=== PATIENT | male | born 1955 | race Caucasian/White ===

== ENCOUNTER → 2017-10-10 20:05 | Outpatient (CLI) | payer OTHER, SELFPAY | PROVIDERS: Family Provider Family Medicine; PCP Family Medicine; Visit Provider Family Medicine | DX: R06.83 Snoring (principal) | CPT/HCPCS: 95811 ==

== ENCOUNTER → 2018-03-20 08:18 | Outpatient (CLI) | payer OTHER, SELFPAY ==
--- NOTE | 2018-03-20 08:21 | RAD_ITS ---
STUDY: X-RAY - ESOPHAGUS (BARIUM SWALLOW) WITH FLUOROSCOPY REASON FOR EXAM: Male, 63 years old. Dysphagia for solid foods. History of laryngeal carcinoma. TECHNIQUE: 16 view(s) of the esophagus were obtained following swallowing of barium. FLUOROSCOPY TIME (if supplied): (0:24) minutes/seconds COMPARISON: None. FINDINGS: There is no demonstrated esophageal foreign body. There is no demonstrated stricture or mucosal abnormality. Small sliding hiatal hernia with gastroesophageal reflux. The patient ingested a 12 mm tablet of barium without any difficulty. There is atherosclerotic tortuosity of the aortic arch and descending thoracic aorta. Normal visualized pulmonary parenchyma. Normal visualized osseous structures of the thorax. RAD/Esophagus Only IMPRESSION: Small sliding hiatal hernia with gastroesophageal reflux. Electronically Signed: Nato Sim MD at 15:22 EDT Tel [phone], Service support ,
== END ==
PROVIDERS: Family Provider Family Medicine; PCP Family Medicine; Visit Provider Otolaryngology Otolaryngology/Facial Plastic Surgery
DX: R13.10 Dysphagia, unspecified (principal)
CPT/HCPCS: 74220

== ENCOUNTER → 2018-06-19 09:14 | Outpatient (CLI) | payer OTHER, SELFPAY ==
[2018-06-19 12:23] LABS: Absolute Lymphocyte Count 0.78 X10^3/ul (0.83-4.51); Absolute Neutrophil Count 3.5 X10^3/uL (2.0-7.7); Basophil# 0.04 X10^3/uL; Basophil% 0.8 % (0-1); Eosinophil# 0.33 X10^3/uL; Eosinophils% 6.4 % (0-5); Hematocrit 43.3 % (40-54); Hemoglobin 13.7 g/dl (13.0-16.5); Lymphocyte # 0.78 X10^3/ul (4.0); Lymphocyte % 15.2 % (19-41); Mean Corp Hgb Conc 31.6 g/gl (32-36); Mean Corpuscular Hgb 25.7 pg (27.0-32.0); Mean Corpuscular Volume 81.1 fL (80-94); Mean Platelet Vol. 10.2 fl (6.2-12.0); Monocyte# 0.48 X10^3/uL; Monocyte% 9.3 % (0-10); Neutrophil % 68.1 % (47-70); Platelet Count 208 K/mm3 (150-450); RBC Distribution Width CV 14.5 % (11.6-14.6); RBC Distribution Width SD 42.5 fl (35.1-43.9); Red Blood Count 5.34 M/mm3 (4.6-6.2); White Blood Count 5.1 K/mm3 (4.4-11.0)
[2018-06-19 12:43] LABS: POSITIVE COUNT NO; POSITIVE DIFFERENTIAL NO; POSITIVE MORPHOLOGY NO
[2018-06-19 12:44] LABS: AST(SGOT) 28 U/L (15-37); Alanine Aminotransfer ALT/SGPT 32 U/L (16-61); Albumin, Serum 3.8 g/dL (3.2-5.0); Alkaline Phosphatase 111 U/L (45-117); Anion Gap 4 (5-15); BUN 15 mg/dL (7-18); BUN/Creat Ratio 15.8 RATIO (10-20); Calcium,Total 8.6 mg/dL (8.5-10.1); Chloride 105 mmol/L (98-107); Cholesterol 129 mg/dL (200); Creatinine, Serum 0.95 mg/dL (0.70-1.30); EST Glomerular Filtration Rate 85 mL/min (>60); Est Glom Filt Rate - Afr Amer 103 mL/min (>60); Globulin 3.7 g/dL (2.2-4.2); Glucose 86 mg/dL (74-106); High Density Lipoprotein 44 mg/dL; PSA,Total - Annual Screen 4.44 ng/mL (0.00-4.00); Potassium 3.9 mmol/L (3.5-5.1); Protein, Total 7.5 g/dL (6.4-8.2); Sodium Level 140 mmol/L (136-145); Thyroid Stim Hormone (TSH) 3.34 uIU/mL (0.358-3.74); Triglycerides 84 mg/dL; Very Low Density Lipoprotein 17 mg/dL (5-40)
== END ==
PROVIDERS: Family Provider Family Medicine; PCP Family Medicine; Referring Provider Family Medicine; Visit Provider Family Medicine
DX: Z00.00 Encounter for general adult medical examination without abnormal findings (principal); I10 Essential (primary) hypertension; E03.9 Hypothyroidism, unspecified; Z12.5 Encounter for screening for malignant neoplasm of prostate; E78.5 Hyperlipidemia, unspecified
CPT/HCPCS: 36415; 80053; 80061; 84153; 84443; 85025; G0103

== ENCOUNTER → 2018-12-28 | Outpatient (CLI) | payer OTHER, SELFPAY ==
[2018-10-02 14:13] VITALS: BMI 33.8
--- NOTE | 2018-12-29 10:59 | PFT ---
INTRODUCTION: The patient is a 63-year-old male that presents for pulmonary function studies secondary to a diagnosis of cough. Respiratory therapy reports good patient effort. Bronchodilators were used during testing. INTERPRETATION: Forced expiration spirometry demonstrates no evidence of a large airways obstructive ventilatory defect. There was no significant response to aerosolized bronchodilators. Spirograms are of good quality and plateau gradually indicating slow emptying of the lungs. Body plethysmography was performed and reveals lung volumes to be within normal limits. Diffusing capacity by single breath CO is also within normal limits. IMPRESSION: Normal pulmonary function studies.
== END | disposition home or self-care (01) ==
LOC: PSN 07:53
PROVIDERS: Family Provider Family Medicine; PCP Family Medicine; Referring Provider Internal Medicine Critical Care Medicine; Visit Provider Internal Medicine Critical Care Medicine
DX: R05 Cough (principal)
CPT/HCPCS: 94060; 94726; 94729

== ENCOUNTER → 2019-01-19 | Outpatient (CLI) | payer OTHER, SELFPAY ==
[2018-10-02 14:13] VITALS: BMI 33.8
[2019-01-19 13:10] LABS: PSA,Total- Diagnostic 2.48 ng/mL (0.0-4.0)
== END | disposition home or self-care (01) ==
LOC: BFHLAB 10:17
PROVIDERS: Family Provider Family Medicine; PCP Family Medicine; Visit Provider Family Medicine
DX: R97.20 Elevated prostate specific antigen [PSA] (principal)
CPT/HCPCS: 36415; 84153

== ENCOUNTER → 2019-04-19 20:00 | Outpatient (CLI) | payer OTHER, SELFPAY ==
[2018-10-02 14:13] VITALS: BMI 33.8
== END ==
PROVIDERS: Family Provider Family Medicine; PCP Family Medicine; Referring Provider Internal Medicine Critical Care Medicine; Visit Provider Internal Medicine Critical Care Medicine
DX: G47.33 Obstructive sleep apnea (adult) (pediatric) (principal)
CPT/HCPCS: 95811

== ENCOUNTER → 2019-05-22 12:00 | Outpatient (CLI) | payer OTHER, SELFPAY ==
[2019-05-22 07:53] VITALS: BMI 33.8
[2019-05-22 14:07] LABS: Hematocrit 42.5 % (40-54); Hemoglobin 13.3 g/dL (13.0-16.5); Mean Corp Hgb Conc 31.3 g/dL (32-36); Mean Platelet Vol. 9.6 fl (6.2-12.0); Platelet Count 213 K/mm3 (150-450); RBC Distribution Width CV 14.3 % (11.6-14.6); RBC Distribution Width SD 42.9 fl (35.1-43.9); Red Blood Count 5.12 M/mm3 (4.6-6.2); White Blood Count 5.9 K/mm3 (4.4-11.0)
[2019-05-22 14:53] LABS: Ferritin 14 ng/mL (26-388); Iron 49 ug/dL (65-175); Iron Binding Capacity,Total 427 ug/dL (250-450); PERCENT IRON SATURATION 11.5 % (15.0-55.0)
== END ==
PROVIDERS: Family Provider Family Medicine; PCP Family Medicine; Referring Provider Nurse Practitioner Acute Care; Visit Provider Nurse Practitioner Acute Care
DX: G25.81 Restless legs syndrome (principal)
CPT/HCPCS: 36415; 82728; 83540; 83550; 85027

== ENCOUNTER → 2020-07-22 09:09 | Outpatient (CLI) | payer OTHER, SELFPAY ==
[2020-03-04 05:37] VITALS: BMI 33.5
[2020-07-22 12:22] LABS: Absolute Lymphocyte Count 0.98 X10^3/uL (0.83-4.51); Absolute Neutrophil Count 3.9 X10^3/uL (2.0-7.7); Basophil# 0.06 X10^3/uL; Eosinophil# 0.39 X10^3/uL; Eosinophils% 6.5 % (0-5); Hematocrit 45.3 % (40-54); Hemoglobin 14.9 g/dL (13.0-16.5); Lymphocyte # 0.98 X10^3/ul (4.0); Lymphocyte % 16.3 % (19-41); Mean Corp Hgb Conc 32.9 g/dL (32-36); Mean Corpuscular Hgb 26.7 pg (27.0-32.0); Mean Corpuscular Volume 81.2 fL (80-94); Mean Platelet Vol. 10.1 fl (6.2-12.0); Monocyte# 0.61 X10^3/uL; Monocyte% 10.2 % (0-10); NRBC Flagged by Analyzer 0 % (0-5); Neutrophil # 3.94 X10^3/uL (2.7-7.7); Neutrophil % 65.7 % (47-70); Platelet Count 246 K/mm3 (150-450); RBC Distribution Width CV 14.6 % (11.6-14.6); RBC Distribution Width SD 43.3 fl (35.1-43.9); Red Blood Count 5.58 M/mm3 (4.6-6.2)
[2020-07-22 12:40] LABS: AST(SGOT) 21 U/L (15-37); Alanine Aminotransfer ALT/SGPT 36 U/L (16-61); Albumin, Serum 3.7 g/dL (3.2-5.0); Alkaline Phosphatase 113 U/L (45-117); Anion Gap 4 (5-15); BUN 19 mg/dL (7-18); BUN/Creat Ratio 17.3 RATIO (10-20); Calcium,Total 9.1 mg/dL (8.5-10.1); Chloride 105 mmol/L (98-107); Cholesterol 137 mg/dL (200); EST Glomerular Filtration Rate 71 mL/min (>60); Est Glom Filt Rate - Afr Amer 86 mL/min (>60); Ferritin 13 ng/mL (26-388); Globulin 3.7 g/dL (2.2-4.2); Glucose 98 mg/dL (74-106); High Density Lipoprotein 51 mg/dL; Iron 43 ug/dL (65-175); PSA,Total - Annual Screen 2.59 ng/mL (0.00-4.00); Potassium 3.8 mmol/L (3.5-5.1); Protein, Total 7.4 g/dL (6.4-8.2); Sodium Level 138 mmol/L (136-145); Thyroid Stim Hormone (TSH) 1.66 uIU/mL (0.358-3.74); Triglycerides 71 mg/dL; Very Low Density Lipoprotein 14 mg/dL (5-40)
== END ==
PROVIDERS: PCP Family Medicine; Visit Provider Family Medicine
DX: I10 Essential (primary) hypertension (principal); E03.9 Hypothyroidism, unspecified; E61.1 Iron deficiency; E78.5 Hyperlipidemia, unspecified; Z51.81 Encounter for therapeutic drug level monitoring; Z12.5 Encounter for screening for malignant neoplasm of prostate
CPT/HCPCS: 36415; 80053; 80061; 82728; 83540; 84153; 84439; 84443; 85025; G0103

== ENCOUNTER → 2020-07-28 12:52 | Outpatient (CLI) | payer MEDICARE, SELFPAY ==
[2020-03-04 05:37] VITALS: BMI 33.5
--- NOTE | 2020-07-28 13:00 | SP.MBSS_ITS ---
Modified Barium Swallow - Patient Information Study Date: 07/28/20 Study Time: 13:00 Direct Billable Minutes: 145 Total Minutes procedure & reportin Diagnosis: dysphagia Referring Physician: Leonard London Reason for Referral: Order received chronic cough with eating in the setting of dry mouth, aspiration vs. obstruction; patient reports tickle in throat where my nose and throat meet with chronic coughing w/ PO intake for years; denies weight loss or pulmonary complications/PNA associated w/ symptoms Medical History: degeneration of intervertebral disc, elevated PSA, essential HTN, GERD, HLD, hypothyroidism, nasopharyngeal cancer s/p chemo/radiation/surgery (1992), LAURA, piriformis syndrome, ED, skin cancer; xerostomia since radiation in 1992; patient reports ?my throat was stretched 2-3 years ago? by Dr. Herman Current Diet Ordered: regular textures/thin liquids Dentition: Natural Teeth - w/ dental implants Mental Status: WNL Respiratory Status: Oxygenating on Room Air - Penetration-Aspiration Scale Penetration-Aspiration Scale: VIDEOFLOROSCOPIC SCALE SCORE (SPEARS): Grade I = aspiration of material that has penetrated into the laryngeal vestibule, intact cough reflex Grade II = aspiration < 10 % of the bolus, intact cough reflex Grade III = aspiration of < 10 % of the bolus, reduced cough reflex or aspiration of > 10 % of the bolus, intact cough reflex Grade IV = aspiration of > 10 % of the bolus, reduced cough reflex - Penetration-Aspiration Scale Score Thin Liquid via teaspoon Result: 8= enters airway/below vocal folds/no effort Comment: VFSS Grade III Thin Liquid via teaspoon Trial 2 Result: 8= enters airway/below vocal folds/no effort Comment: VFSS Grade III Thin Liquid via small single sip from cup Result: 8= enters airway/below vocal folds/no effort Comment: VFSS Grade III Thin Liquid via sequential sips from cup Result: 8= enters airway/below vocal folds/no effort Comment: VFSS Grade III Other Result: 5= enters airways/contacts vocal folds/not ejected Comment: Dry swallow of oropharyngeal secretions w/ chin tuck posture - not effective for airway protection w/ worsening penetration of pharyngeal residue Honey Thick Liquid via small single sip from cup Result: 3= enters airways/above vocal folds/not ejected [place] Thick Liquid via small single sip from cup Result: 5= enters airways/contacts vocal folds/not ejected [place] Thick Liquid via small single sip from cup Supraglottic swallow Result: 5= enters airways/contacts vocal folds/not ejected Comment: Supraglottic Swallow effective to reduce amount of contrast penetrated Honey Thick Liquid via small single sip from cup Trial 2 Result: 3= enters airways/above vocal folds/not ejected [place] Thick Liquid via small single sip from cup Trial 2 Result: 5= enters airways/contacts vocal folds/not ejected Pudding Result: 1= does not enter airway Cookie Result: 1= does not enter airway Honey Thick Liquid via small single sip from cup Trial 3 Result: 5= enters airways/contacts vocal folds/not ejected Honey Thick Liquid via small single sip from cup Trial 4 Result: 1= does not enter airway [place] Thick Liquid via small single sip from cup Trial 3 Result: 5= enters airways/contacts vocal folds/not ejected [place] Thick Liquid via small single sip from cup Supraglottic swallow Trial 2 Result: 3= enters airways/above vocal folds/not ejected Thin Liquid via small single sip from cup Supraglottic swallow Result: 3= enters airways/above vocal folds/not ejected - pharyngeal residue entered the laryngeal vestibule post deglutition, contacting the vocal folds - Oral Phase Labial Seal: No Labial Escape Tongue Control During Bolus Hold: Cohesive bolus between tongue to palatal seal Bolus Preparation/Mastication: Slow prolonged chewing/mashing with complete re collection Bolus Transport/Lingual Motion: Slowed tongue motion Oral Residue: Residue collection on oral structures - Pharyngeal Phase Initiation of Pharyngeal Swallow: Bolus head at posterior laryngeal surgace of epiglottis Soft Palate Elevation: Trace column of contrast/air between soft palate and pharyngeal wall Laryngeal Elevation: Partial superior movement thyroid cart/partial apprx aryt- epig petiole Anterior Hyoid Excursion: No anterior movement - minimal Epiglottic Movement: Partial inversion Laryngeal Vestibule Closure at Height of Swallow: Incomplete; narrow column of air/contrast in laryngeal vestibule Pharyngeal Stripping Wave: Present - diminished Pharyngoesophageal Segment Opening: Parital distension and partial duration; parital obstruction of flow Tongue Base Retraction: Narrow column of contrast between tongue base & post. pharyngeal wall Pharyngeal Residue: Majority of contrast within or on pharyngeal structures - Esophageal Phase Esophageal Clearance: Esophageal retention w/ retrograde flow below pharyngoesophageal seg. - Treatment Strategies Effects of treatment strategies attemped:: Reduction in bolus volume = effective to improve bolus location at time of swallow onset Supraglottic swallow = effective to reduce but not eliminate amount of laryngeal vestibule penetration Multiple swallows = partially effective - Diagnosis/Impression Diagnosis: moderate to severe oropharyngeal dysphagia Impression: This patient presents w/ moderate to severe oropharyngeal dysphagia secondary to prior nasopharyngeal cancer and late effects of radiation. Of note, darkening/calcification is visible where the vocal folds connect to the thyroid cartilage prior to provision of contrast. Swallow function is marked by: * mildly impaired A-P bolus transit w/ moderate oral residue retention post deglutition of solid texture trial, likely exacerbated by chronic xerostomia * incomplete velopharyngeal port closure secondary to prior partial surgical resection of velum w/ visible air between remaining velum and posterior pharyngeal wall * contrast that lined the posterior pharyngeal wall extended upward between the remaining velum and posterior pharyngeal wall w/out entrance into the nasal cavity * incomplete base of tongue to posterior pharyngeal wall contact resulting in suboptimal pharyngeal contraction and reduced pressure for pharyngeal clearance/pharyngoesophageal segment opening * minimal anterior hyoid excursion resulted in incomplete epiglottic inversion and poor pharyngoesophageal segment distention/duration of opening which impeded bolus flow into the esophagus * epiglottis did not invert beyond 180 degrees w/ tip of epiglottis curled against the posterior pharyngeal wall which impeded bolus clearance w/ resultant vallecular residue retention * impaired hyolaryngeal excursion, incomplete epiglottic inversion and incomplete arytenoid to epiglottic petiole contact all contributed to impaired laryngeal vestibule closure w/ penetration across all liquid consistencies and SILENT aspiration of thin liquids * a supraglottic swallow technique was effective to improve laryngeal vestibule closure during deglutition and reduced the degree/severity of laryngeal vestibule penetration and was effective to eliminate aspiration of thin liquids during/immediately after deglutition * poor pharyngeal clearance w/ a significant collection of contrast retained on the base of tongue, valleculae and pyriform sinuses; contrast lined the posterior pharyngeal wall and aryepiglottic folds post deglutition * multiple swallows were required and utilized w/ pudding/solid textures; ~10% of bolus entered through PES into esophagus w/ each swallow w/ +50% retained win the pharynx post deglutition * pyriform sinus contrast penetrated into the laryngeal vestibule post deglutition * cricopharyngeal hypertrophy w/ CP visible at the level of C4 * cervical osteophyte visible at the level of C5 * esophageal bolus retention evident w/ retrograde bolus flow below the PES * 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 (although not impacting overall swallow function); further assessment of esophageal function is recommended w/ consideration for endoscopy/manometry as deemed appropriate per referring physician d/t CP bar w/ impaired esophageal clearance - Recommendations Diet: Regular Textures, [place]-thick Liquids Comment: Minced & moist textures (IDDSI: 5); Thin liquids (IDDSI:0) with the following recommended aspiration precautions in place: * small bites/sips, one at a time * alternate bites/sips * sit upright when eating and drinking * supraglottic swallow technique * reswallow as often as needed for each bite/sip to ensure throat is clear * remain upright for 30-60 minutes after intake * frequent oral hygiene Recommend Repeat Modified Barium Swallow: Yes Need for Skilled Speech Therapy Services: Yes Recommended Referrals: GI Consult - further assessment of pharyngoesophageal/esophageal function Comment: Results and recommendations were discussed w/ the patient immediately following MBS completion w/ extensive review of the images obtained and education provided re: deficits in swallow function identified and the compounding effects of radiation over time on swallow function. Strongly encouraged participation in outpatient dysphagia intervention to address the above identified deficits. Discussed options for diet texture/liquid consistency modification. Given that this patient appears to be a fairly reliable historian and denies any weight loss or pneumonia associated w/ current swallow dysfunction, thickening of liquids is not recommended at this time, as this dysphagia has likely progressively worsening over time w/ the patient compensating for aspiration w/out decompensation of pulmonary function. High risk for decompensation if this patient were to become ill/immobile. Handout detailing recommendations provided. Education well received. - Status Active ST Patient: Active - Contact Information [facility] Speech Therapy:: Melanie Diaz M.A., [facility] Speech-Language Pathologist [phone]
== END ==
PROVIDERS: PCP Family Medicine; Referring Provider Family Medicine; Visit Provider Family Medicine
DX: R05 Cough (principal); R13.10 Dysphagia, unspecified
CPT/HCPCS: 74230; 92611

== ENCOUNTER 2020-09-19 08:00 | Outpatient (RCR) | payer MEDICARE, SELFPAY ==
[2020-03-04 05:37] VITALS: BMI 33.5
--- NOTE | 2020-08-15 15:30 | ST ---
[facility] Speech Pathology [address] [place] [place] [address] Modified Barium Swallow Study MR#: [id number] Acct: [id number] Name: TREVON CASTANEDA Rep #: [id number] : [id number] 65 From: Melanie Diaz M.A. [facility]-[employer] Modified Barium Swallow - Patient Information Study Date: 07/28/20 Study Time: 13:00 Direct Billable Minutes: 145 Total Minutes procedure & reportin Diagnosis: dysphagia Referring Physician: Leonard London Reason for Referral: Order received chronic cough with eating in the setting of dry mouth, aspiration vs. obstruction; patient reports tickle in throat where my nose and throat meet with chronic coughing w/ PO intake for years; denies weight loss or pulmonary complications/PNA associated w/ symptoms Medical History: degeneration of intervertebral disc, elevated PSA, essential HTN, GERD, HLD, hypothyroidism, nasopharyngeal cancer s/p chemo/radiation/surgery (1992), LAURA, piriformis syndrome, ED, skin cancer; xerostomia since radiation in 1992; patient reports ?my throat was stretched 2-3 years ago? by Dr. Herman Current Diet Ordered: regular textures/thin liquids Dentition: Natural Teeth - w/ dental implants Mental Status: WNL Respiratory Status: Oxygenating on Room Air - Penetration-Aspiration Scale Penetration-Aspiration Scale: VIDEOFLOROSCOPIC SCALE SCORE (SPEARS): Grade I = aspiration of material that has penetrated into the laryngeal vestibule, intact cough reflex Grade II = aspiration < 10 % of the bolus, intact cough reflex Grade III = aspiration of < 10 % of the bolus, reduced cough reflex or aspiration of > 10 % of the bolus, intact cough reflex Grade IV = aspiration of > 10 % of the bolus, reduced cough reflex - Penetration-Aspiration Scale Score Thin Liquid via teaspoon Result: 8= enters airway/below vocal folds/no effort Comment: VFSS Grade III Thin Liquid via teaspoon Trial 2 Result: 8= enters airway/below vocal folds/no effort Comment: VFSS Grade III Thin Liquid via small single sip from cup Result: 8= enters airway/below vocal folds/no effort Comment: VFSS Grade III Thin Liquid via sequential sips from cup Result: 8= enters airway/below vocal folds/no effort Comment: VFSS Grade III Other Result: 5= enters airways/contacts vocal folds/not ejected Comment: Dry swallow of oropharyngeal secretions w/ chin tuck posture - not effective for airway protection w/ worsening penetration of pharyngeal residue Honey Thick Liquid via small single sip from cup Result: 3= enters airways/above vocal folds/not ejected [place] Thick Liquid via small single sip from cup Result: 5= enters airways/contacts vocal folds/not ejected [place] Thick Liquid via small single sip from cup Supraglottic swallow Result: 5= enters airways/contacts vocal folds/not ejected Comment: Supraglottic Swallow effective to reduce amount of contrast penetrated Honey Thick Liquid via small single sip from cup Trial 2 Result: 3= enters airways/above vocal folds/not ejected [place] Thick Liquid via small single sip from cup Trial 2 Result: 5= enters airways/contacts vocal folds/not ejected Pudding Result: 1= does not enter airway Cookie Result: 1= does not enter airway [place] Thick Liquid via small single sip from cup Trial 3 Result: 5= enters airways/contacts vocal folds/not ejected [place] Thick Liquid via small single sip from cup Trial 4 Result: 1= does not enter airway [place] Thick Liquid via small single sip from cup Trial 3 Result: 5= enters airways/contacts vocal folds/not ejected [place] Thick Liquid via small single sip from cup Supraglottic swallow Trial 2 Result: 3= enters airways/above vocal folds/not ejected Thin Liquid via small single sip from cup Supraglottic swallow Result: 3= enters airways/above vocal folds/not ejected - pharyngeal residue entered the laryngeal vestibule post deglutition, contacting the vocal folds - Oral Phase Labial Seal: No Labial Escape Tongue Control During Bolus Hold: Cohesive bolus between tongue to palatal seal Bolus Preparation/Mastication: Slow prolonged chewing/mashing with complete recollection Bolus Transport/Lingual Motion: Slowed tongue motion Oral Residue: Residue collection on oral structures - Pharyngeal Phase Initiation of Pharyngeal Swallow: Bolus head at posterior laryngeal surgace of epiglottis Soft Palate Elevation: Trace column of contrast/air between soft palate and pharyngeal wall Laryngeal Elevation: Partial superior movement thyroid cart/partial apprx aryt-epig petiole Anterior Hyoid Excursion: No anterior movement - minimal Epiglottic Movement: Partial inversion Laryngeal Vestibule Closure at Height of Swallow: Incomplete; narrow column of air/contrast in laryngeal vestibule Pharyngeal Stripping Wave: Present - diminished Pharyngoesophageal Segment Opening: Parital distension and partial duration; parital obstruction of flow Tongue Base Retraction: Narrow column of contrast between tongue base & post. pharyngeal wall Pharyngeal Residue: Majority of contrast within or on pharyngeal structures - Esophageal Phase Esophageal Clearance: Esophageal retention w/ retrograde flow below pharyngoesophageal seg. - Treatment Strategies Effects of treatment strategies attemped:: Reduction in bolus volume = effective to improve bolus location at time of swallow onset Supraglottic swallow = effective to reduce but not eliminate amount of laryngeal vestibule penetration Multiple swallows = partially effective - Diagnosis/Impression Diagnosis: moderate to severe oropharyngeal dysphagia Impression: This patient presents w/ moderate to severe oropharyngeal dysphagia secondary to prior nasopharyngeal cancer and late effects of radiation. Of note, darkening/calcification is visible where the vocal folds connect to the thyroid cartilage prior to provision of contrast. Swallow function is marked by: mildly impaired A-P bolus transit w/ moderate oral residue retention post deglutition of solid texture trial, likely exacerbated by chronic xerostomia incomplete velopharyngeal port closure secondary to prior partial surgical resection of velum w/ visible air between remaining velum and posterior pharyngeal wall contrast that lined the posterior pharyngeal wall extended upward between the remaining velum and posterior pharyngeal wall w/out entrance into the nasal cavity incomplete base of tongue to posterior pharyngeal wall contact resulting in suboptimal pharyngeal contraction and reduced pressure for pharyngeal clearance/pharyngoesophageal segment opening minimal anterior hyoid excursion resulted in incomplete epiglottic inversion and poor pharyngoesophageal segment distention/duration of opening which impeded bolus flow into the esophagus epiglottis did not invert beyond 180 degrees w/ tip of epiglottis curled against the posterior pharyngeal wall which impeded bolus clearance w/ resultant vallecular residue retention impaired hyolaryngeal excursion, incomplete epiglottic inversion and incomplete arytenoid to epiglottic petiole contact all contributed to impaired laryngeal vestibule closure w/ penetration across all liquid consistencies and SILENT aspiration of thin liquids a supraglottic swallow technique was effective to improve laryngeal vestibule closure during deglutition and reduced the degree/severity of laryngeal vestibule penetration and was effective to eliminate aspiration of thin liquids during/immediately after deglutition poor pharyngeal clearance w/ a significant collection of contrast retained on the base of tongue, valleculae and pyriform sinuses; contrast lined the posterior pharyngeal wall and aryepiglottic folds post deglutition multiple swallows were required and utilized w/ pudding/solid textures; ~10% of bolus entered through PES into esophagus w/ each swallow w/ +50% retained win the pharynx post deglutition pyriform sinus contrast penetrated into the laryngeal vestibule post deglutition cricopharyngeal hypertrophy w/ CP visible at the level of C4 cervical osteophyte visible at the level of C5 esophageal bolus retention evident w/ retrograde bolus flow below the PES 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 (although not impacting overall swallow function); further assessment of esophageal function is recommended w/ consideration for endoscopy/manometry as deemed appropriate per referring physician d/t CP bar w/ impaired esophageal clearance - Recommendations Diet: Regular Textures, [place]-thick Liquids Comment: Minced & moist textures (IDDSI: 5); Thin liquids (IDDSI:0) with the following recommended aspiration precautions in place: small bites/sips, one at a time alternate bites/sips sit upright when eating and drinking supraglottic swallow technique reswallow as often as needed for each bite/sip to ensure throat is clear remain upright for 30-60 minutes after intake frequent oral hygiene Recommend Repeat Modified Barium Swallow: Yes Need for Skilled Speech Therapy Services: Yes Recommended Referrals: GI Consult - further assessment of pharyngoesophageal/esophageal function Comment: Results and recommendations were discussed w/ the patient immediately following MBS completion w/ extensive review of the images obtained and education provided re: deficits in swallow function identified and the compounding effects of radiation over time on swallow function. Strongly encouraged participation in outpatient dysphagia intervention to address the above identified deficits. Discussed options for diet texture/liquid consistency modification. Given that this patient appears to be a fairly reliable historian and denies any weight loss or pneumonia associated w/ current swallow dysfunction, thickening of liquids is not recommended at this time, as this dysphagia has likely progressively worsening over time w/ the patient compensating for aspiration w/out decompensation of pulmonary function. High risk for decompensation if this patient were to become ill/immobile. Handout detailing recommendations provided. Education well received. - Status Active ST Patient: Active - Contact Information [facility] Speech Therapy:: Melanie Diaz M.A., CCC-CLP Speech-Language Pathologist [email or web address] [phone] 07/29/201928 <Electronically signed by Melanie Diaz M.A., CCC-[employer]TA[employer] PERSONAL B[employer]ER> Date Melanie Diaz M.A., CCC-[employer]TA[employer] PERSONAL B[employer]ER Co-Signature Required for all Medicare patients Date/Time Co-Signature CC: ~
--- NOTE | 2020-12-16 10:41 | HP.SP.DC_ITS ---
ST Discharge Summary - Discharged: Discharge: The pt participated in MBS study on 08/08/20 revealing moderate-severe oropharyngeal phase dysphagia s/p surgery and chemoradiation for nasopharyngeal cancer (1992). Outpatient speech therapy evaluation and POC initiated 08/15/20 to implement oropharyngeal strengthening, train in diet recommendations, and train in compensatory strategies to decrease risk for aspiration. The pt participated in 3 follow-up sessions. [facility] spoke with the patient via phone call 11/06/20 and pt not interested in scheduling additional visits at this time, despite ST encouragement to continue with home exercise program to improve swallow function and to consider continued training in strategies to decrease risk for aspiration. Pt will be discharged at this time.
== END 2020-09-19 19:00 | disposition home or self-care (01) ==
LOC: SP 08:00
PROVIDERS: PCP Family Medicine; Referring Provider Family Medicine; Visit Provider Family Medicine
DX: R13.10 Dysphagia, unspecified (principal); R47.02 Dysphasia
CPT/HCPCS: 92507; 92526; 92610

== ENCOUNTER → 2020-10-09 14:46 | Outpatient (CLI) | payer MEDICARE, SELFPAY ==
[2020-03-04 05:37] VITALS: BMI 33.5
== END ==
PROVIDERS: PCP Family Medicine; Referring Provider Internal Medicine Gastroenterology; Visit Provider Internal Medicine Gastroenterology
DX: Z11.59 Encounter for screening for other viral diseases (principal)
CPT/HCPCS: 87635; C9803; U0002

== ENCOUNTER → 2020-12-30 12:56 | Outpatient (CLI) | payer MEDICARE, SELFPAY ==
[2020-11-11 06:02] VITALS: BMI 31.4
--- NOTE | 2020-12-30 14:17 | SP.MBSS_ITS ---
Modified Barium Swallow - Patient Information Study Date: 12/30/20 Study Time: 13:00 Direct Billable Minutes: 150 Total Minutes procedure & reportin Diagnosis: Dysphagia, unspecified (R13.10) Referring Physician: Mich Herman Reason for Referral: Assess swallow function and aspiration risk due to history of dysphagia. Medical History: The patient is a 65 year old male with PMH including: dysphagia, degeneration of intervertebral disc, elevated PSA, essential HTN, HLD, hypothyroidism, ED, piriformis syndrome, and skin cancer. Most notably: nasopharyngeal cancer s/p chemo/radiation/surgery (1992), xerostomia since radiation in 1992, LAURA, and GERD. Patient additionally reports having esophageal dilatation early this year for the second time, the first time occurring approximately 2-3 years ago. The patient was referred for repeat MBS study to objectively assess oropharyngeal dysphagia. He reports complaints of dry mouth, requiring sips to wash dry foods, and difficulty swallowing certain solid textures, including oranges and peas. The patient participated in a MBS study on 07/28/2020, revealing moderate-severe oropharyngeal phase dysphagia with recommendations for Minced & moist textures (IDDSI: 5); Thin liquids (IDDSI:0) with the following recommended aspiration precautions: small bites/sips, one at a time, alternate bites/sips, sit upright when eating and drinking, supraglottic swallow technique, reswallow as often as needed for each bite/sip to ensure throat is clear, remain upright for 30-60 minutes after intake, frequent oral hygiene. The patient participated in outpatient speech therapy evaluation with POC initiated 08/15/20 to implement oropharyngeal strengthening, train in diet recommendations, and train in compensatory strategies to decrease risk for aspiration. He participated in 3 follow-up sessions prior to the patient electing to discontinue speech therapy. Current Diet Ordered: Regular Textures / Thin liquids Dentition: WNL Mental Status: WNL Respiratory Status: Oxygenating on Room Air - Study Findings Consistencies: Thin Liquid, [place] Thick Liquid, Honey Thick Liquid, Pudding, Cookie - Penetration-Aspiration Scale Penetration-Aspiration Scale: OBJECTIVE ASSESSMENT OF SWALLOW FUNCTION (QUANTITATIVE ? PER TRIAL): PENETRATION / ASPIRATION SCALE (SPEARS): 1 = does not enter airway 2 = enters airway/above vocal folds/ejected 3 = enters airway/above vocal folds/not ejected 4 = enters airway/contacts vocal folds/ejected 5 = enters airway/contacts vocal folds/not ejected 6 = enters airway/below vocal folds/ejected 7 = enters airway/below vocal folds/not ejected despite effort 8 = enters airway/below vocal folds/no effort VIDEOFLOROSCOPIC SCALE SCORE (SPEARS): Grade I = aspiration of material that has penetrated into the laryngeal vestibule, intact cough reflex Grade II = aspiration < 10 % of the bolus, intact cough reflex Grade III = aspiration of < 10 % of the bolus, reduced cough reflex or aspiration of > 10 % of the bolus, intact cough reflex Grade IV = aspiration of > 10 % of the bolus, reduced cough reflex - Penetration-Aspiration Scale Score Thin Liquid via teaspoon Result: 1= does not enter airway Thin Liquid via small single sip from cup Result: 8= enters airway/below vocal folds/no effort - Grade III silent aspiration. Thin Liquid via single sip from straw Result: 8= enters airway/below vocal folds/no effort - Grade IV silent aspiration [place] Thick Liquid via teaspoon Result: 5= enters airways/contacts vocal folds/not ejected [place] Thick Liquid via small single sip from cup Result: 5= enters airways/contacts vocal folds/not ejected Thin Liquid via teaspoon Trial 2 Result: 5= enters airways/contacts vocal folds/not ejected Thin Liquid via teaspoon Chin tuck Result: 8= enters airway/below vocal folds/no effort - Grade IV silent aspiration. Thin Liquid via teaspoon Super-Supraglottic swallow Result: 5= enters airways/contacts vocal folds/not ejected Honey Thick Liquid via teaspoon Result: 1= does not enter airway Pudding via teaspoon Result: 1= does not enter airway Comment: Pudding residue was seen penetrating the laryngeal vestibule to the vocal cords without ejection during the following cookie trial. Cookie Result: 1= does not enter airway Honey Thick Liquid via small single sip from cup Result: 1= does not enter airway Honey Thick Liquid via small single sip from cup Trial 2 Result: 1= does not enter airway - Oral Phase Labial Seal: No Labial Escape Tongue Control During Bolus Hold: Posterior escape of greater than half of bolus Bolus Preparation/Mastication: Slow prolonged chewing/mashing with complete recollection Bolus Transport/Lingual Motion: Repetitive/disorganized tongue motion Oral Residue: Residue collection on oral structures - Pharyngeal Phase Initiation of Pharyngeal Swallow: Bolus head at posterior laryngeal surgace of epiglottis Soft Palate Elevation: Escape to nasopharynx Laryngeal Elevation: Partial superior movement thyroid cart/partial apprx aryt- epig petiole Anterior Hyoid Excursion: Partial anterior movement Epiglottic Movement: No inversion Laryngeal Vestibule Closure at Height of Swallow: Incomplete; narrow column of air/contrast in laryngeal vestibule Pharyngoesophageal Segment Opening: Parital distension and partial duration; parital obstruction of flow Tongue Base Retraction: Narrow column of contrast between tongue base & post. pharyngeal wall Pharyngeal Residue: Majority of contrast within or on pharyngeal structures - Esophageal Phase Esophageal Clearance: Esophageal retention w/ retrograde flow through pharyngoesophageal seg - Treatment Strategies Effects of treatment strategies attemped:: Decreased bolus volume: Somewhat effective in improving bolus control and decreasing premature anterior spillage. Multiple swallows: Somewhat effective in clearing oral and pharyngeal residues. Chin tuck: Not effective. Increased volume of aspirate when consuming thin liquids. Super-supraglottic swallow: Not effective with thin liquid trial. The pt pene trated contrast to the vocal folds on both first and second swallow. - Diagnosis/Impression Diagnosis: Moderate-severe oropharyngeal phase dysphagia (R13.12) Impression: The patient presents with moderate-severe oropharyngeal dysphagia. The oral phase of the swallow is marked by deficits in mastication and lingual control resulting in prolonged mastication and premature loss of bolus upon swallow onset. He required repetitive tongue movements for bolus transport. After the swallow, he had mild-moderate oral residue lining the oral structures. Pharyngeal phase deficits were characterized by delayed pharyngeal swallow onset timing resulting in suboptimal bolus location on the vallecula or posterior wall of the epiglottis upon swallow onset. The patient also has reduced airway closure during deglutition attributed to reduced laryngeal elevation and anterior hyoid excursion resulting in decreased closure of the laryngeal ves tibule. The patient additionally, presented with significantly reduced tongue base retraction and little to no epiglottic movement resulting in moderate- severe pharyngeal residue of pudding and cookie in the vallecula. This residue improved with multiple swallows and liquid wash with honey thickened liquids. The patient presented with velopharyngeal insufficiency resulting in a small collection of residues of liquid contrasts in the nasopharynx and lining the velum. He had decreased duration of UES opening resulting in pharyngeal residues in the pyriform sinuses, which increased with thicker viscosities. He presented with SILENT aspiration of sips of thin liquids via cup and straw and deep penetration to the vocal folds without ejection of tsp sips of thin liquids, nectar thick liquids, and nectar liquids via cup. [employer] cued the patient to cough and re-swallow between trials, which somewhat cleared the laryngeal vestibule of contrast. However, aspirated contrast still evident below vocal folds. The patient was also noted to aspirate trace amount of pharyngeal residue of pudding after the swallow when completing subsequent trial of cookie. The patient?s esophageal phase of the swallow was marked by slowed emptying of pudding contrast in the lower esophagus. The patient appeared to have trace retrograde flow of bolus through UES on final trials of the study. - Recommendations Diet: Mechanical Soft Textures - Minced and Moist, Honey-thick Liquids Comment: Would consider the patient for a modified FFWP with thin liquids by darci to be implemented in outpatient speech therapy. Compensatory Strategies: Small Bites, Small Sips, No Straws, Multiple Swallows, Alternate bites/solids and sips/liquids - Alternate solids and honey thickened liquids with 1:1 ratio., Sitting upright, Remain sitting upright for 30 minutes after PO intake Recommend Repeat Modified Barium Swallow: Yes Comment: Would recommend repeat MBS study in 10-12 weeks after completion of oropharyngeal exercise program. Need for Skilled Speech Therapy Services: Yes Comment: Will recommend the patient for outpatient dysphagia therapy to address moderate- severe deficits in oral and pharyngeal phases of swallow. Would recommend implementation of oropharyngeal strengthening to improve hyolaryngeal elevation and excursion, PES opening/duration, and tongue base retraction. Would consider completion of effortful swallows, Josué maneuver, and Lynnette maneuver. The patient would also benefit from thorough education regarding diet recommendations and recommended compensatory strategies to decrease his risk for aspiration. Would consider the patient for a modified Vigil Free Water Protocol (FFWP) with unthickened water consumed via tsp to promote hydration. Recommended Referrals: ENT Consult - Concern for irregular bulge noted on upper pharyngeal constrictor between velum and posterior pharyngeal wall. SEE photo attached at end of study. Education Completed: 1. Described result of evaluation., 7. Pt requires further education on strategies & risks. - Educated the patient in results of the evaluation and recommendations following completion of the study and via follow- up phone call. - Status Active ST Patient: Active - Contact Information [facility] Speech Therapy:: Teresa Villanueva M.A., [facility] Speech Language Pathologist [facility] [address] [place] [address] [email or web address] [phone]
== END ==
PROVIDERS: PCP Family Medicine; Referring Provider Internal Medicine Gastroenterology; Visit Provider Internal Medicine Gastroenterology
DX: R13.10 Dysphagia, unspecified (principal)
CPT/HCPCS: 74230; 92611

== ENCOUNTER → 2021-02-09 16:55 | Outpatient (CLI) | payer MEDICARE, SELFPAY ==
[2020-11-11 06:02] VITALS: BMI 31.4
[2021-02-09 18:09] LABS: Creatinine, Serum 0.96 mg/dL (0.70-1.30); EST Glomerular Filtration Rate 84 mL/min (>60); Est Glom Filt Rate - Afr Amer 101 mL/min (>60)
== END ==
PROVIDERS: PCP Family Medicine; Referring Provider Otolaryngology; Visit Provider Otolaryngology
DX: G51.0 Bell's palsy (principal)
CPT/HCPCS: 36415; 82565

== ENCOUNTER → 2021-02-19 17:44 | Outpatient (CLI) | payer MEDICARE, SELFPAY ==
[2020-11-11 06:02] VITALS: BMI 31.4
--- NOTE | 2021-02-19 18:07 | MRI_ITS ---
STUDY: MRI BRAIN WITH AND WITHOUT CONTRAST (ATTENTION INTERNAL AUDITORY CANALS - I.A.C.''s) REASON FOR EXAM: Male, 65 years old. SUE''S PALSY TECHNIQUE: Standardized multiplanar fat and water weighted pulse sequences were obtained. IV Yes YES was administered for the contrast portion of the examination. COMPARISON: None. FINDINGS: Normal bilateral temporal bones. Normal bilateral internal auditory canals. There is no demonstrated intracanalicular or cisternal vestibular schwannoma (acoustic neuroma). There is no enhancement of the bilateral VIIth or VIIIth cranial nerves. Normal bilateral cochlea, vestibules and semicircular canals. Normal size of the ventricles and extra-axial spaces for the patient''s age. Normal white matter tracts of the supratentorial brain. Normal bilateral basal ganglia. Normal thalami. Normal flow voids within the major intracranial circulation suggesting patency by spin echo criteria. Normal venous enhancement. There is no enhancing intra-axial or extra-axial abnormality. There is no extra-axial fluid accumulation. Normal sella turcica, pituitary gland, infundibular stalk, optic chiasm and hypothalamus. Normal tectal plate and pineal gland. Normal midbrain, stefano and medulla. Normal cerebellum. Normal basal cisterns. No demonstrated orbital abnormality, within the constraints of a routine brain study. Normal visualized paranasal sinuses. Normal calvarium and skull base. Normal visualized soft tissue structures. Normal visualized upper cervical spine. MRI/Brain W/WO Contrast IMPRESSION: Normal unenhanced and enhanced MRI of the bilateral internal auditory canals (I.A.C''s). Electronically Signed: Jr Schulz MD at 21:33 EDT , Service support ,
== END ==
PROVIDERS: PCP Family Medicine; Referring Provider Otolaryngology; Visit Provider Otolaryngology
DX: G51.0 Bell's palsy (principal)
CPT/HCPCS: 70553; A9575

== ENCOUNTER → 2021-06-26 09:22 | Outpatient (CLI) | payer MEDICARE, SELFPAY ==
--- NOTE | 2021-06-26 09:24 | RAD_ITS ---
STUDY: XR Knee Complete 4 Views or More 06/26/2021 6:56 PM REASON FOR EXAM: Male, 66 years old. Technologist Notes erythematous and swollen left knee, question possibility of pseudogout TECHNIQUE: XR Knee Complete 4 Views or More COMPARISON: None. FINDINGS: Normal visualized distal femur. Normal visualized proximal tibia and fibula. Normal proximal tibiofibular articulation. There is periarticular soft tissue swelling. There is mild degenerative arthrosis of the medial femorotibial compartment. Normal lateral femorotibial compartment. Normal patellofemoral articulation. There is a lucency along the patella which may represent a patellar fracture. The soft tissue structures are unremarkable. RAD/Knee 4 or More Views IMPRESSION: Degenerative arthrosis. There is periarticular soft tissue swelling. There is a lucency along the patella which may represent a patellar fracture. Electronically Signed: Bravo Gonzales MD at 18:57 EST , Service support ,
== END ==
PROVIDERS: PCP Family Medicine; Referring Provider Family Medicine; Visit Provider Family Medicine
DX: M25.462 Effusion, left knee (principal)
CPT/HCPCS: 73564

== ENCOUNTER 2021-09-11 10:29 | Outpatient (CLI) | payer MEDICARE, SELFPAY ==
[2021-09-11 12:30] LABS: PSA,Total - Annual Screen 3.25 ng/mL (0.00-4.00)
[2021-09-11 12:34] LABS: Hemoglobin A1c 5.8 % (3.8-5.6)
== END 2021-09-11 23:59 | disposition home or self-care (01) ==
LOC: MTLAB 10:33
PROVIDERS: PCP Family Medicine; Referring Provider Family Medicine; Visit Provider Family Medicine
DX: R73.01 Impaired fasting glucose (principal); Z12.5 Encounter for screening for malignant neoplasm of prostate
CPT/HCPCS: 36415; 83036; 84153; G0103

== ENCOUNTER 2021-10-01 17:00 | Outpatient (RCR) | payer MEDICARE, SELFPAY ==
--- NOTE | 2021-08-28 12:34 | HP.PTEVAL_ITS ---
Patient's Visit Information TREVON CASTANEDA is a 66 year old M referred to Physical Therapy by Dr. Leonard London DO with a diagnosis of cervical radiculopathy. Date of Evaluation: 08/28/21 Physical Therapist: Tamir Duncan, DPT, OCS, CSCS - Visit Plan Frequency: 2-3x /Week Duration: 4 Weeks Plan: 2-3x/week for 2-4 weeks for. 1. ext bias cervical ROM and scap ROM with mobs as needed. 2. postural coreection and cervicsal postural /strength. 3. May use STM to R UT as needed and ICT to neck which has been helpful in the past. - Subjective R shoulder pain similar to what he had a few yrs ago when traction helped. This pain goes into scapula R and has been present for a week. It started out of nowhere but it is his busy time of year as he is getting tax records ready and at computer alot and driving more. Sitting in low chair to reach up to desk can hurt. Massage gun helps and advil helps. Pain gets up to 6/10 with sitting. At times it does not hurt. Currently 2/10. Turning head to R makes him worse. Sleep Ok due to pain. Activities have been normal just painful. No numbness or tingling. - Pain r shoulder Pain Intensity (Out of 10): 2 Pain Intensity Range: 0, 6 - Objective Posture is forward head and protracted scap. C/S AROM ext 45 and deviates L, B rotation 65, retraction painful, flexion without pain and full. Tender to palpation R UT and rhomboids medial to scap max. UE AROM WFL, some tightness with elevation and ext rotation. Strength UE 4/5 without myotomal abnormalitiies. reflexes 1/3 bi and tri B. Sensation WNL to gross light touch B UE. - HK, - neer, - ext rotation lag test. + c/s compression R. - VAT B. repeated motion testin/10 to start. protrusion decreases to 2/10. repe ated retraction: increases to 3/10. repeated extension: NE, increased motion and deviation L is gone - Balance/Special Test Scores Oswestry Neck Score: 6 - Goals Goal 1:: Sit with proper posture 75% of time without cues Goal Time Frame: 2-4 Weeks Goal 2:: Patient feel pain 90% better at 1/10 at worst Goal Time Frame: 2-4 Weeks Goal 3:: Full aROM cervical without pain Goal Time Frame: 2-4 Weeks Goal 4:: oswestry score 2 or less Goal Time Frame: 2-4 Weeks - Rehabilitation Potential Physical Therapy Diagnosis: cervical radiculopathy Rehabilitation Potential: Good - Anticipated Interventions Patient/Client Instruction: Educate patient on: Condition, Plan of Care For the Purpose of:: To decrease pain, To increase ROM, To improve muscle performance and motor function, To improve ability of physical actions for home/community/work/leisure Therapeutic Exercise to Include: Strength training, Postural training, Flexibilty training, Passive ROM, Active ROM, Scapular Strength/Stabilization For the Purpose of:: To decrease pain, To increase ROM, To improve muscle performance and motor function, To improve ability of physical actions for home/community/work/leisure Manual Therapy Techniques to Include: Soft tissue mobilization Comment: tx For the Purpose of:: To decrease pain Intermittent cervical traction: Yes For the Purpose of:: To decrease pain Thank you for the opportunity to evaluate your patient. For Medicare and Medicare HMO plans, please review the plan of care and approve it. It will need to be FAXED BACK to us at [phone] for Medicare purposes. For Medicare only, by signing this I certify the plan of care. Please let me know if there are questions or concerns regarding this plan of care. Physician Signature: Date:
--- NOTE | 2021-10-01 17:22 | HP.PTDCSUM ---
It has been my pleasure to treat TREVON CASTANEDA referred by Dr. Leonard London DO, with the diagnosis of cervical radiculopathy for a total of 11 visit(s). Discharge Date: Please see the following information for a summary of their discharge status. Subjective: Still has pain anterior R shoulder, shoulder blade feels better. Hurts after computer work. Shoulder blade pain is gone. Drove to [place] the other day. Has exercises for Home. No f/u with doctor. r shoulder Pain Intensity (Out of 10): 2 % Improvement: 90 Objective/Function: Good aROM c/s without pain today. - ext rot lag test. - HK R. Full UE AROM without pain today. strength UE symmetrical. Goals met and patient happy and educated on home traction options. Goal 1:: Sit with proper posture 75% of time without cues Goal Progress: Goal Met Goal 2:: Patient feel pain 90% better at 1/10 at worst Goal Progress: 80 Goal 3:: Full aROM cervical without pain Goal Progress: Goal Met Goal 4:: oswestry score 2 or less Goal Progress: Progressing Plan: d/c If there are questions or concerns regarding this patient's physical therapy, please feel free to call me at [phone]. Thank you for the referral of this patient. Sincerely, Tamir Duncan, DPT, OCS, CSCS Balance/Gait/Functional tests - Balance/Special Test Scores Oswestry Neck Score: 5
== END 2021-10-01 19:00 | disposition home or self-care (01) ==
LOC: PT 17:00
PROVIDERS: PCP Family Medicine; Referring Provider Family Medicine; Visit Provider Family Medicine
DX: M54.12 Radiculopathy, cervical region (principal)
CPT/HCPCS: 97012; 97110; 97161; 97164; 97530

== ENCOUNTER → 2022-09-09 | Outpatient (CLI) | payer MEDICARE, SELFPAY ==
[2022-09-09 12:21] LABS: Absolute Lymphocyte Count 0.91 X10^3/uL (0.83-4.51); Absolute Neutrophil Count 3.9 X10^3/uL (2.0-7.7); Basophil# 0.07 X10^3/uL; Basophil% 1.2 % (0-1); Eosinophil# 0.45 X10^3/uL; Eosinophils% 7.5 % (0-5); Hematocrit 45.5 % (40-54); Hemoglobin 14.3 g/dL (13.0-16.5); Lymphocyte # 0.91 X10^3/ul (0.83-4.51); Lymphocyte % 15.2 % (19-41); Mean Corp Hgb Conc 31.4 g/dL (32-36); Mean Corpuscular Hgb 26.5 pg (27.0-32.0); Mean Corpuscular Volume 84.3 fL (80-94); Mean Platelet Vol. 10.3 fl (6.2-12.0); Monocyte% 11.7 % (0-10); NRBC Flagged by Analyzer 0 % (0-5); Neutrophil # 3.85 X10^3/uL (2.7-7.7); Neutrophil % 64.2 % (47-70); Platelet Count 227 K/mm3 (150-450); RBC Distribution Width CV 14.4 % (11.6-14.6); RBC Distribution Width SD 43.6 fl (35.1-43.9)
[2022-09-09 12:53] LABS: ALB/GLOB Ratio 1.1 RATIO (0.9-2.4); AST(SGOT) 22 U/L (15-37); Alanine Aminotransfer ALT/SGPT 29 U/L (16-61); Albumin, Serum 3.9 g/dL (3.2-5.0); Alkaline Phosphatase 103 U/L (45-117); Anion Gap 7 (5-15); BUN 20 mg/dL (7-18); BUN/Creat Ratio 17.4 RATIO (10-20); Calcium,Total 9.7 mg/dL (8.5-10.1); Chloride 104 mmol/L (98-107); Cholesterol 137 mg/dL (200); Creatinine, Serum 1.15 mg/dL (0.70-1.30); EST Glomerular Filtration Rate 67 mL/min (>60); Est Glom Filt Rate - Afr Amer 82 mL/min (>60); Globulin 3.7 g/dL (2.2-4.2); Glucose 85 mg/dL (74-106); High Density Lipoprotein 51 mg/dL; PSA,Total - Annual Screen 3.82 ng/mL (0.00-4.00); Potassium 4.2 mmol/L (3.5-5.1); Protein, Total 7.6 g/dL (6.4-8.2); Sodium Level 139 mmol/L (136-145); Thyroid Stim Hormone (TSH) 2.06 uIU/mL (0.358-3.74); Triglycerides 81 mg/dL; Very Low Density Lipoprotein 16 mg/dL (5-40)
== END | disposition home or self-care (01) ==
LOC: BFHLAB 10:29
PROVIDERS: PCP Family Medicine; Visit Provider Family Medicine
DX: Z00.00 Encounter for general adult medical examination without abnormal findings (principal); I10 Essential (primary) hypertension; E78.5 Hyperlipidemia, unspecified; E03.9 Hypothyroidism, unspecified; Z12.5 Encounter for screening for malignant neoplasm of prostate
CPT/HCPCS: 36415; 80053; 80061; 84153; 84443; 85025; G0103

== ENCOUNTER → 2022-10-19 | Outpatient (CLI) | payer MEDICARE, SELFPAY | END | disposition home or self-care (01) | LOC: PSN 09:20 | PROVIDERS: PCP Family Medicine; Referring Provider Family Medicine; Visit Provider Family Medicine | DX: R00.2 Palpitations (principal) | CPT/HCPCS: 93225; 93226 ==

== ENCOUNTER → 2024-02-28 | Outpatient (CLI) | payer MEDICARE, SELFPAY ==
[2024-02-28 13:21] LABS: ALB/GLOB Ratio 1.1 RATIO (0.9-2.4); AST(SGOT) 31 U/L (15-37); Alanine Aminotransfer ALT/SGPT 31 U/L (16-61); Albumin, Serum 3.8 g/dL (3.2-5.0); Alkaline Phosphatase 103 U/L (45-117); Anion Gap 9 (5-15); BUN 14 mg/dL (7-18); BUN/Creat Ratio 13.9 RATIO (10-20); Calcium,Total 9.6 mg/dL (8.5-10.1); Chloride 107 mmol/L (98-107); Cholesterol 136 mg/dL (200); Creatinine, Serum 1.01 mg/dL (0.70-1.30); EST Glomerular Filtration Rate 78 mL/min (>60); Est Glom Filt Rate - Afr Amer 94 mL/min (>60); Globulin 3.5 g/dL (2.2-4.2); Glucose 107 mg/dL (74-106); High Density Lipoprotein 55 mg/dL; PSA,Total - Annual Screen 3.51 ng/mL (0.00-4.00); Potassium 3.6 mmol/L (3.5-5.1); Protein, Total 7.3 g/dL (6.4-8.2); Sodium Level 140 mmol/L (136-145); T4 Free Direct 1.21 ng/dL (0.76-1.46); Triglycerides 77 mg/dL; Very Low Density Lipoprotein 15 mg/dL (5-40)
[2024-02-28 13:25] LABS: Absolute Lymphocyte Count 0.87 X10^3/uL (0.83-4.51); Absolute Neutrophil Count 3.7 X10^3/uL (2.0-7.7); Basophil# 0.06 X10^3/uL; Basophil% 1.1 % (0-1); Eosinophil# 0.49 X10^3/uL; Eosinophils% 8.7 % (0-5); Hematocrit 42.8 % (40-54); Hemoglobin 13.6 g/dL (13.0-16.5); Lymphocyte # 0.87 X10^3/ul (0.83-4.51); Lymphocyte % 15.4 % (19-41); Mean Corp Hgb Conc 31.8 g/dL (32-36); Mean Corpuscular Hgb 25.7 pg (27.0-32.0); Mean Corpuscular Volume 80.8 fL (80-94); Mean Platelet Vol. 10.4 fl (6.2-12.0); Monocyte# 0.57 X10^3/uL; Monocyte% 10.1 % (0-10); NRBC Flagged by Analyzer 0 % (0-5); Neutrophil # 3.65 X10^3/uL (2.7-7.7); Neutrophil % 64.3 % (47-70); Platelet Count 252 K/mm3 (150-450); RBC Distribution Width CV 14.8 % (11.6-14.6); RBC Distribution Width SD 43.2 fl (35.1-43.9); White Blood Count 5.7 K/mm3 (4.4-11.0)
== END | disposition home or self-care (01) ==
PROVIDERS: PCP Family Medicine; Referring Provider Family Medicine; Visit Provider Family Medicine
DX: I10 Essential (primary) hypertension (principal); E78.5 Hyperlipidemia, unspecified; E03.9 Hypothyroidism, unspecified; Z12.5 Encounter for screening for malignant neoplasm of prostate
CPT/HCPCS: 36415; 80053; 80061; 84153; 84439; 84443; 85025; G0103

== ENCOUNTER → 2025-03-20 | Outpatient (CLI) | payer MEDICARE, SELFPAY ==
[2025-03-20 12:56] LABS: Hematocrit 42.2 % (40-54); Hemoglobin 13.7 g/dL (13.0-16.5); Immature Granulocytes Count 0.020 X10^3/uL (0.0-0.0); Mean Corp Hgb Conc 32.5 g/dL (32-36); Mean Corpuscular Volume 80.5 fL (80-94); Mean Platelet Vol. 10.1 fl (6.2-12.0); NRBC Flagged by Analyzer 0 % (0-5); Platelet Count 263 K/mm3 (150-450); RBC Distribution Width CV 15.7 % (11.6-14.6); RBC Distribution Width SD 45.4 fl (35.1-43.9); Red Blood Count 5.24 M/mm3 (4.6-6.2); White Blood Count 5.9 K/mm3 (4.4-11.0)
[2025-03-20 13:16] LABS: AST(SGOT) 29 U/L (<=37); Alanine Aminotransfer ALT/SGPT 25 U/L (<=46); Albumin, Serum 4.2 g/dL (3.4-4.8); Alkaline Phosphatase 98 U/L (40-129); Anion Gap 13 (5-15); BUN 18 mg/dL (4-19); BUN/Creat Ratio 16.8 RATIO (10-20); Calcium,Total 9.6 mg/dL (7.6-11.0); Carbon Dioxide 24.2 mmol/L (21.0-32.0); Chloride 102 mmol/L (98-108); Cholesterol 133 mg/dL (<=200); Globulin 2.7 g/dL (2.2-4.2); Glucose 105 mg/dL (70-99); Low Density Lipoprotein Calc. 69 mg/dL; PSA,Total - Annual Screen 2.19 ng/mL (0.02-4.00); Potassium 3.9 mmol/L (3.3-5.1); Triglycerides 76 mg/dL; Very Low Density Lipoprotein 15 mg/dL (5-40); cholesterol:hdl ratio screen 2.74
== END | disposition home or self-care (01) ==
LOC: BFHLAB 08:48
PROVIDERS: PCP Family Medicine; Visit Provider Family Medicine
DX: I10 Essential (primary) hypertension (principal); E78.5 Hyperlipidemia, unspecified; E03.9 Hypothyroidism, unspecified; Z12.5 Encounter for screening for malignant neoplasm of prostate
CPT/HCPCS: 36415; 80053; 80061; 84153; 84443; 85025; G0103